=== PATIENT | female | born 1970 | race Two or more races ===

== ENCOUNTER 2022-06-21 10:34 | Emergency (ER) | payer MEDICAID ==
[~2022-06-21] VITALS: Ht 162.6 cm; Wt 61.3 kg
[2022-06-21 10:34] VITALS: BP 181/102
== END 2022-06-21 12:00 | disposition left against medical advice (07) ==
LOC: EDBD 10:34 → ER 10:34
DX: F41.9 Anxiety disorder, unspecified (principal); Z53.21 Procedure and treatment not carried out due to patient leaving prior to being seen by health care provider